=== PATIENT | male | born 1940 | race Caucasian/White ===

== ENCOUNTER → 2016-12-26 | Outpatient (CLI) | payer OTHER ==
[~2016-12-26] VITALS: Ht 167.6 cm; Wt 71.7 kg
[~2016-12-26] MED LIST: ACCUPRIL; ACCUPRIL PO; ACTOS15 MG PO; ADULT LOW DOSE81 MG PO; ASPIR 8181 MG PO; ASPIRIN PO; ASPIRIN325 PO; B-121000 MC2 PO; BAYER CHEWABLE81 MG PO; BISACODYL SUPP10 MG RECTAL; CHANTIX1 MG; COMBIVENT INH; COMBIVENT RESPIM4 GM INH; EFFIENT10 MG PO; FISH OIL 1,0001 EAC5 PO; FISHOIL OR; FISHOIL PO; GLUCOPHAGE1000 MG PO; HYDROCODONE-AP1 EAC6 PO; IBUPROFEN 200200 M1 PO; INDERAL40 MG PO; IRON325 PO; KLOR-CON M2020 MEQ PO; LEVAQUIN 250 M250 MG PO; MINIPRIN81 MG PO; NASAL & SINUS D30 MG PO; PIOGLITAZONE15 MG; PLAVIX 75 MG TA75 M1 PO; PRILOSEC 20 MG20 MG PO; PROPRANOLOL 4040 M1 PO; PROTONIX40 M1 PO; PROTONIX40 M2 PO; QUINU5 PD PO; SIMVASTATIN40 MG PO; SYMBICORT INH; SYMBICORT160 MCG/4. INH; TYLENOL325 MG PO; VITAMIN D1000 UNIT PO; VOLTAREN GEL 1100 G2 TOP; ZOCOR40 MG PO
--- NOTE | ~2016-12-26 | S ---
[facility] [place] [address] SURGICAL PATH RPT PROCEDURE Name: IMANI BENNETT Room #: REG PREMA Abreu.#: [id number] Admission: 12/26/16 Date of : 44 Discharge: Report #: [id number] Path Case #: [id number] PATHOLOGY REPORT COLLECTION DATE: 12/26/2016 RECEIVED DATE: 12/26/2016 SUBMITTING PHYS: Dr. Kailash Bolden OTHER PHYS: Dr. Barrington Lee SPECIMEN(S) RECEIVED: A.Small bowel B.Gastric C.Polyp at 30cm * * * * * * * * * * * * FINAL DIAGNOSIS: A. Small bowel mucosa, rule out celiac disease, endoscopic biopsy: - No diagnostic abnormalities present. B. Gastric mucosa, rule out gastritis, endoscopic biopsy: - Three fragments of antrum mucosa showing moderate reactive gastropathy; negative for intestinal metaplasia or atrophy. - Two fragments of small bowel-type villous mucosa compatible with pyloric outlet. - Negative for Helicobacter pylori. C. Polyp, 30 cm, endoscopic biopsy: - Hyperplastic polyp. - Negative for dysplasia. (IUV:harley; 12/29/2016) COMMENT: Helicobacter pylori immunohistochemical stain performed on block B1: Negative. PATHOLOGIST: Melani Britton M.D. REPORT ELECTRONICALLY SIGNED BY: Melani Britton M.D. DATE/TIME: 12/29/2016 16:22 * * * * * * * * * * * * GROSS PATHOLOGY: A. The specimen is received in formalin, labeled "Ney Bennett and biopsy small bowel rule out celiac disease", are multiple villalba soft tissue the aggregate measure 0.7 x 0.3 x 0.2 cm, entirely submitted in A1. B. The specimen is received in formalin, labeled "Ney Roselin and biopsy gastric rule out gastritis", are multiple villalba soft tissue the aggregate measure 0.5 x 0.3 x 0.2, entirely submitted in B1. [address] [address] SURGICAL PATH RPT PROCEDURE Name: IMANI BENNETT Room #: REG [facility].#: [id number] Admission: 12/26/16 Date of : 44 Discharge: Report #: [id number] Path Case #: [id number] C. The specimen is received in formalin, labeled "Ney Bennett and polyp at 30 cm", are two villalba soft tissue 0.3 and 0.5 cm in greatest dimension, entirely submitted in C1. (SWS; 12/26/2016) CLINICAL HISTORY: Anemia, gastritis, hiatal hernia, colon polyps, diverticulosis INITIAL CPT CODE(S): A; 60664 B; 16844, 92421 C; 21669 Professional services performed by [facility] at [address], [place] [address] Technical services performed by [facility] at [address] [place] [address], [address] [address]. [facility] [address] [place] [address] PHONE: [phone] DIRECTOR: Jefferson Pimentel M.D. * * * END OF REPORT * * *
--- NOTE | ~2016-12-26 | P ---
[facility] [place] [address] [place] [address] PROCEDURE REPORT Name: IMANI BENNETT Room #: REG Jodie Markell.#: [id number] Admission: 12/26/16 Attend Phys: Kailash Bolden MD Discharge: Date of : 42 Report #: [id number] THIS REPORT FOR: //name// CC: Kailash Lee MD BRIEF HISTORY: The patient is a 76-year-old male with history of anemia, which is recurrent. He also reports he has lost 60 pounds in the past year, described anorexia and early satiety. PREOPERATIVE DIAGNOSES: Anemia and weight loss. POSTOPERATIVE DIAGNOSES: 1. Moderate diffuse gastritis. 2. Moderate hiatus hernia. MEDICATIONS: Deep sedation with propofol per anesthesia. SPECIMEN: Small-bowel biopsies to rule out celiac disease. ESTIMATED BLOOD LOSS: 3 mL. PROCEDURE: EGD with biopsy. FINDINGS: Prior to propofol sedation, procedure of upper endoscopy was discussed with the patient as well as potential risks, benefits, and complications. He indicates he understands and desires to proceed. With the patient in left lateral decubitus position, the [employer] video endoscope was inserted in the cervical esophagus under direct vision without difficulty. Examination of this organ through its entire length revealed normal esophageal mucosa down the squamocolumnar junction. The squamocolumnar junction was inspected and noted to be unremarkable. No evidence of ulcers, erosions, or [place] mucosa. No strictures were seen. A moderate hiatus hernia was noted. Mucosa and hernia was normal. No ulcers or erosions were seen. The scope was advanced in the stomach, which was examined on end view as well as retroflexed views. There was a pattern of diffuse erythematous gastritis, primarily in the antrum and stomach, no ulcers were seen. No retained solids or liquids were seen with regards to gastroparesis. Upon retroflexion, the hiatus hernia was seen. No mass lesions were seen. The pylorus, duodenal bulb, and postbulbar sweep down to the third portion was inspected and noted to be unremarkable. Due to his anemia, multiple biopsies were obtained to evaluate for celiac disease. At that point, the scope was slowly withdrawn and careful circumferential views confirmed the above findings. The patient tolerated the procedure well. In addition, no bleeding lesions or lesions to be associated with blood loss were identified today. In addition, the patient had hyperplastic polyps in the past [address] [address] PROCEDURE REPORT Name: IMANI BENNETT Room #: REG CLI Anselmo#: [id number] Admission: 12/26/16 Attend Phys: Kailash Bolden MD Discharge: Date of : 42 Report #: [id number] that were removed, no polyps were seen on examination today. CONDITION OF THE PATIENT UPON DISCHARGE: Following procedure, the patient drowsy and prepared for colonoscopy. INSTRUCTIONS TO THE PATIENT AND FAMILY AT THE TIME OF DISCHARGE: We will follow up on biopsy and proceed with colonoscopy, if diagnosis of anemia remains in doubt, repeat an M2 capsule may be consideration in this patient. his weight loss and symptoms of early satiety, he may have gastroparesis and we will have him obtain a gastric emptying study for further evaluation. We will proceed with colonoscopy at this time. <ELECTRONICALLY SIGNED> By: Kailash Bolden MD 12/26/16 1108 [id number] 0854 Kailash Bolden MD /nt
--- NOTE | ~2016-12-26 | P ---
[facility] [place] [address] [place] [address] PROCEDURE REPORT Name: IMANI BENNETT Room #: REG [facility].#: [id number] Admission: 12/26/16 Attend Phys: Kailash Bolden MD Discharge: Date of : 42 Report #: [id number] THIS REPORT FOR: //name// CC: Kailash Lee MD BRIEF HISTORY: The patient is a 76-year-old male with a history of anemia which is recurrent. PREOPERATIVE DIAGNOSIS: Anemia. POSTOPERATIVE DIAGNOSES: 1. A flat 4-mm polyp, 30 cm. 2. Moderate diverticulosis coli, greater left colon than right colon. 3. Melanosis coli. MEDICATIONS: Deep sedation with propofol per anesthesia. SPECIMEN: Polyp from 30 cm. ESTIMATED BLOOD LOSS: 3 mL. PROCEDURE: Colonoscopy to cecum and ileum with biopsy. FINDINGS: Prior to sedation, the procedure of colonoscopy was discussed with the patient as well as potential risks and its complications. He indicates he understands and desires to proceed. DESCRIPTION OF PROCEDURE: With the patient in the left lateral decubitus position, digital examination was completed, which revealed no abnormalities. Subsequently, the [employer] video colonoscope was introduced in the rectum, advanced under direct vision to the cecum. Done with minimal difficulty. The cecum was identified by the ileocecal valve and the appendiceal orifice. I was also able to visualize the distal segment of the terminal ileum, which was inspected and noted to be unremarkable. At that point, the scope was slowly withdrawn and careful circumferential views obtained. Upon slow withdrawal of the scope, the prep was noted to be good. The mucosa was within normal limits. Normal vascular pattern. Normal light reflex. As we withdrew the scope, the mucosa was inspected. The mucosa was intact throughout the colon. No bleeding lesions or potential bleeding lesions were seen on this examination. He was noted to have a pattern of mild melanosis throughout the entire colon. There was no endoscopic evidence of diverticulitis. Again, as we withdrew the scope, the mucosa was intact. No mucosal abnormalities were seen until the scope was withdrawn in the sigmoid colon, and at 30 cm, a flat 4-mm polyp was seen and removed by biopsy. In addition, there was noted to be moderately severe diverticular disease of the left colon, without endoscopic evidence of [address] [address] PROCEDURE REPORT Name: IMANI BENNETT SHANNOCK Room #: REG [facility]#: [id number] Admission: 12/26/16 Attend Phys: Kailash Bolden MD Discharge: Date of : 44 Report #: [id number] diverticulitis. Scope was withdrawn in the rectum. Upon retroflexion, no abnormalities were seen. Scope was withdrawn. The patient tolerated the procedure well. CONDITION OF THE PATIENT UPON DISCHARGE: Following procedure, the patient drowsy and will be discharged home when fully ambulatory. INSTRUCTIONS TO THE PATIENT AND FAMILY AT THE TIME OF DISCHARGE: As per anemia, I do not find any bleeding lesions. Please see upper endoscopy report for additional details regarding evaluation for anemia. If the small bowel biopsies done at the EGD are negative, consider repeating his M2 Capsule study. He also has had a 60-pound weight loss. Please see upper endoscopy report for additional comments. I do not see any lesions that would explain weight loss. We will follow up on the path report. If the polyp is an adenoma, he should return in 5 years; if not, then would give consideration to 10 years, but based on his overall felt status at that point in time. He will otherwise return to the care of Dr. Barrington Lee. We will obtain labs for review with regards to his anemia. Last colonoscopy was more than 5 years ago. Withdrawal time from the cecum was 70 minutes 33 seconds. <ELECTRONICALLY SIGNED> By: Kailash Bolden MD 12/26/16 1108 0908 1003 Kailash Bolden MD /nt
== END | disposition home or self-care (01) ==
LOC: GI 07:01
DX: K63.5 Polyp of colon (principal); K57.30 Diverticulosis of large intestine without perforation or abscess without bleeding; K31.9 Disease of stomach and duodenum, unspecified; K63.89 Other specified diseases of intestine; K44.9 Diaphragmatic hernia without obstruction or gangrene; I10 Essential (primary) hypertension; E11.9 Type 2 diabetes mellitus without complications; J43.9 Emphysema, unspecified; E78.5 Hyperlipidemia, unspecified; K21.9 Gastro-esophageal reflux disease without esophagitis; F17.210 Nicotine dependence, cigarettes, uncomplicated; Z95.5 Presence of coronary angioplasty implant and graft; Z95.1 Presence of aortocoronary bypass graft; Z90.49 Acquired absence of other specified parts of digestive tract; Z98.41 Cataract extraction status, right eye; Z98.42 Cataract extraction status, left eye; Z98.890 Other specified postprocedural states; Z88.8 Allergy status to other drugs, medicaments and biological substances; Z79.82 Long term (current) use of aspirin; Z79.899 Other long term (current) drug therapy
CPT/HCPCS: 62110; 62900

== ENCOUNTER → 2017-01-08 | Outpatient (CLI) | payer OTHER | LOC: NUC 01-06 00:43 | DX: R14.0 Abdominal distension (gaseous) (principal); R68.81 Early satiety ==

== ENCOUNTER → 2017-02-16 | Outpatient (CLI) | payer OTHER | END | disposition home or self-care (01) | LOC: GI 02-02 14:42 | DX: K92.2 Gastrointestinal hemorrhage, unspecified (principal); Z98.890 Other specified postprocedural states; Z88.8 Allergy status to other drugs, medicaments and biological substances; Z79.82 Long term (current) use of aspirin; Z79.899 Other long term (current) drug therapy; Z86.73 Personal history of transient ischemic attack (TIA), and cerebral infarction without residual deficits ==

== ENCOUNTER → 2017-03-20 | Outpatient (CLI) | payer OTHER ==
[~2017-03-20] MED LIST changes: +COLACE100 MG PO; +FLOMAX0.4 MG PO; +HYDRALAZINE 10M10 MG PO; +LEVAQUIN 500 M500 M1 PO; +MIDODRINE HCL2.5 M1 PO; +MIRALAX17 GM PO; +MUCINEX600 MG PO
== END ==
LOC: RAD 12:43
DX: J44.9 Chronic obstructive pulmonary disease, unspecified (principal)

== ENCOUNTER 2017-05-31 17:21 | Inpatient (IN) | payer OTHER ==
[~2017-05-31] VITALS: Ht 180.3 cm; Wt 65.1 kg
[2017-05-31] VITALS (22 sets, daily range): BP systolic 126–211; BP diastolic 64–142
--- NOTE | ~2017-05-31 | EEG ---
[facility] [place] [address] ELECTROENCEPHALOGRAM Name: IMANI BENNETT Room #: 217-P [facility] IN M.R.#: [id number] Admission: 05/31/17 Attend Phys: Iggy Centeno DO Discharge: 06/04/17 Date of : 44 Report #: [id number] THIS REPORT FOR: //name// CC: Iggy Lee DATE OF SERVICE: 06/01/2017 This patient's EEG was done because this patient continued to deteriorate and we do not find any reason on the imaging study for his deterioration. His background activity is about 6 Hz and 30 microvolts. It is intermixed with theta range slowing on both sides. It is slow on both sides, but it may be even more slow on the left side as compared to the right side. Photic stimulation is unremarkable. The EEG does appear to be somewhat slower on some places as compared to others and the patient may be drowsy there. IMPRESSION: This is an abnormal EEG because it is very disorganized and poorly formed. That is a nonspecific finding, but can occur with any encephalopathy. EEG does appear to be a little bit more slow on the left side as compared to the right side. Clinical correlation is recommended. Thank you very much for this referral. <ELECTRONICALLY SIGNED> By: Pj Yadav MD 06/11/17 1906 1557 1601 Pj Yadav MD /zeke
--- NOTE | ~2017-05-31 | HC ---
[facility] [place] [place] [address] [place] [address] CONSULTATION Name: IMANI BENNETT RAY Room #: 238-P ADM IN M.R.#: [id number] Admission: 05/31/17 Attend Phys: Iggy Centeno DO Discharge: Date of : 42 Report #: [id number] THIS REPORT FOR: //name// CC: Iggy Shepherden Jesus DATE OF SERVICE: 05/31/2017 HISTORY OF PRESENT ILLNESS: This is a 76-year-old male patient who presented with pretty profound weakness on the left side. It was acute in onset and it started spontaneously. It was associated with hypertension. The patient usually does not have that much of hypertension and in fact his blood pressure usually runs about 120/80. He also had some left facial droop. Emergency Room physician evaluated the patient for TPA and I discussed with them and asked them to check for exclusion criteria and if there is no exclusion and the patient wanted to proceed with TPA, TPA can be given. That was done by Emergency Room and TPA was started. The patient is stable and has not had any side effect from TPA and I talked to him and the again and they very well understand the indication, potential complication, and alternatives of TPA. REVIEW OF SYSTEMS: Indicate that he did not have any stroke in the past. He does have a significant coronary artery disease. He had right hip problems in the past. He had bilateral cataract surgery. He has a history of diabetes and hyperlipidemia. He has a history of smoking. He does take Plavix. That was his relevant 14-point review of systems. PAST MEDICAL HISTORY: Negative for stroke. FAMILY HISTORY: Negative for early age stroke. SOCIAL HISTORY: He has a history of smoking, but not abusing alcohol. PHYSICAL EXAMINATION: Indicate he is alert. He is responsive. He can follow simple command. Initially, his speech was slightly slurred, but when I saw him, he had no speech difficulty, but his cranial nerve examinations appear to be showing left hemianopsia. I did that examination multiple times and he does have left hemianopsia. Similarly, he still has a slight left facial palsy. His motor examination in the left upper and left lower extremity has significantly improved. He is able to move both of them against gravity, now without any difficulty. He is still weak in the left upper and left lower extremity when compared to the right side, but it is about 4/5. His heart does not appear to be showing atrial fibrillation. He has no respiratory difficulty, is reasonably well-developed individual. When he came in, his blood pressure was 211/89, but it did come down by a single dose of labetalol. His imaging demonstrate that CT scan does not show any obvious abnormalities. [facility] [address] [place] [address] CONSULTATION Name: IAMNI BENNETT Room #: 238-P [facility] IN M.R.#: [id number] Admission: 05/31/17 Attend Phys: Iggy Centeno DO Discharge: Date of : 44 Report #: [id number] IMPRESSION: I had a long discussion with the patient and the . I discussed with them the TPA. I discussed with them that we cannot confirm the diagnosis of TPA before giving TPA because the time will run out. That was already explained by Emergency Room physicians before gave him the TPA and as I understand from him he went to the exclusion criteria. He is on Plavix and Plavix is not really a contraindication for TPA. He is hypertensive. I did talk to them that there is a real chance of having a symptomatic bleed and that can be catastrophic and fatal. I did discuss with them the TPA started without fully confirming the diagnosis at this stage and they understood it. His blood pressure is fluctuating with labetalol. It has come down to 160s, but then it goes back to 180s again. Therefore, I suggested the Cardene, which will be easy to titrate and it will be okay to get his blood pressure down to about 150 systolic and keep between 150 and 180 systolic because his vasculature is open. His hemianopsia is worrisome. If his hemianopsia continue, then I think he will need pretty extensive workup to look for any atrial fibrillation. Presently, there is nothing to do thrombectomy on because a CT angio was reported as normal. I will reevaluate this patient soon and I have talked to the nurses and then see him back again tomorrow. <ELECTRONICALLY SIGNED> By: Pj Yadav MD 05/31/172307 40 06 Pj Yadav MD /nt
--- NOTE | ~2017-05-31 | HC ---
[facility] [place] [address] [place] [address] CONSULTATION Name: IMANI BENNETT Room #: 217-P [facility] IN M.R.#: [id number] Admission: 05/31/17 Attend Phys: Iggy Centeno DO Discharge: 06/04/17 Date of : 44 Report #: [id number] THIS REPORT FOR: //name// CC: Iggy Lee DATE OF SERVICE: 06/01/2017 HISTORY OF PRESENT ILLNESS: The patient is a 76-year-old white male admitted with left-sided weakness, facial droop. He was diagnosed with a CVA with left-sided weakness and was given TPA. CT and MRI scan were noted to be negative. EEG was also negative. There is a question of possible hypertensive encephalopathy, but Neurology is closely involved. We are seeing him in rehabilitation medicine consultation. He is currently in the intensive care unit. PAST MEDICAL HISTORY: Includes hypertension, hyperlipidemia, diabetes mellitus, GERD, COPD, coronary artery disease, and status post coronary artery bypass graft. MEDICATIONS: Please see the full medication listing. ALLERGIES: INTEGRILIN. HABITS: History of tobacco abuse, noted to be current every day smoker. SOCIAL HISTORY: Lives in a house with his . Premorbid walker ambulator in the community. Otherwise, did not use a gait aid in the house and just walks slowly. They have one step to go in. REVIEW OF SYSTEMS: Unobtainable as he is quite somnolent. PHYSICAL EXAMINATION: GENERAL: A 76-year-old white male, quite sleepy seen in the intensive care unit. No obvious distress. He has nasal prong O2 in place. VITAL SIGNS: Last recorded temperature 97.7, pulse 74, respirations 20, blood pressure 151/72. NEUROLOGIC: Facies appeared symmetric. He was only arouse for me for a few seconds and then drift back off to sleep. He was able to say a couple of simple statements. Appeared to have weakness of that left upper and left lower extremity, probably a grade 4/5. DTRs were trace to 1. I was unable to assess sensation. ASSESSMENT: A 76-year-old white male with the following problem list: 1. Cerebrovascular accident with left-sided hemiparesis, status post TPA. [address] [address] CONSULTATION Name: IMANI BENNETT RAY Room #: 217- DIS IN M.R.#: [id number] Admission: 05/31/17 Attend Phys: Iggy Centeno DO Discharge: 06/04/17 Date of : 44 Report #: [id number] and MRI without an obvious cerebrovascular accident. EEG was negative. Neurology is involved. 3. Question of hypertensive encephalopathy. 4. Permissive hypertension. 5. Coronary artery disease status post stent with. 6. Diabetes mellitus type 2. 7. Hyperlipidemia. 8. Gastroesophageal reflux disease. 9. Chronic obstructive pulmonary disease. PLAN: The patient is continuing care is in the intensive care unit at this point. Therapy evaluations are underway. He certainly may warrant an acute in-hospital inpatient rehabilitation stay depending upon how he does as he further stabilizes. He is still quite sleepy right now and will need to see how he does in his therapy evaluations. We will be glad to follow along with you regarding his rehab therapy needs. <ELECTRONICALLY SIGNED> By: Andrew Sue MD 06/09/17 1030 1015 1200 Andrew Sue MD /[facility]
--- NOTE | ~2017-05-31 | EKG ---
[address] [address] ELECTROCARDIOGRAM REPORT Name: DONALDIMANI Room #: 238-P ADM IN M.R.#: [id number] Admission: 05/31/17 Attend Phys: Iggy Centeno DO Discharge: Date of : 44 Report #: [id number] THIS REPORT FOR: //name// [facility] ED Test Date: 2017-05-31 Test Time: 18:30:11 Pat Name: IMANI BENNETT Department: Room: 238 Gender: M Sdc Teacher: : 1940 Requested By: Julien James Order Number: [id number] MD: Young Delgado Measurements Intervals [place] Rate: 74 P: 50 VT: 191 QRS: -56 QRSD: 129 T: -3 QT: 440 QTc: 489 Interpretive Statements Sinus rhythm Left bundle branch block Compared to ECG 08/26/2015 01:16:58 No significant changes Electronically Signed On 05-31-2017 21:51:57 CDT by Young Delgado [email or web address] <ELECTRONICALLY SIGNED> By: Young Delgado MD 05/31/17 215 29 29 Young Delgado MD /BRIAN
--- NOTE | ~2017-05-31 | HC ---
[facility] [place] [address] CONSULTATION Name: IMANI BENNETT RAY Room #: 238-P ADM IN M.R.#: [id number] Admission: 05/31/17 Attend Phys: Iggy Centeno DO Discharge: Date of : 44 Report #: [id number] THIS REPORT FOR: //name// CC: Iggy Lee REFERRAL PHYSICIAN: Dr. Centeno. REASON FOR REFERRAL: Hypoxia. HISTORY OF PRESENT ILLNESS: The patient is a 76-year-old white male, was admitted yesterday with left-sided weakness and facial droop, with hypoxia. A pulmonary consultation was requested. The patient was in his usual state of health until yesterday evening when he complained of weakness in the left upper and lower extremity along with facial droop. Initial CT head and MRI were unremarkable. The patient was felt with evolving CVA, and TPA was given. He was also found to be hypertensive, being given antihypertensive medications. He currently appears weak, what appears to have apneic spells. He is developing periodic hypoxia with apneas. According to the , the patient has had progressive deterioration of health about 2 years ago. He started to have poor appetite 2 years ago and has been gradually gaining weight. I am not certain if he had a workup during this time. Over the past 6 months, he has also been getting weaker. He has attributed this to severe sciatica pain. He has had cortisone shots in the past. It was recommended that he receive a permanent pain pump placement for his back pain. PAST MEDICAL HISTORY: Notable for COPD with passive tobacco use after having smoked about 40 years. Coronary artery disease, undergoing coronary artery bypass surgery, hypertension, diabetes mellitus type 2, anemia, hyperlipidemia, gastroesophageal reflux disease. PAST SURGICAL HISTORY: Notable for cholecystectomy, right hip replacement, cardiac stenting, bilateral cataract surgery, oral surgery with maxillary extraction. ALLERGIES: INTEGRILIN, WHICH CAUSES SEVERE LEUKOPENIA. HOME MEDICATIONS: Symbicort, Glucophage, Zocor, fish oil supplements, Combivent, Protonix, Plavix, aspirin, iron supplements, vitamin B12 supplements. FAMILY HISTORY: Noncontributory. [facility] [address] [place] [address] CONSULTATION Name: IMANI BENNETT RAY Room #: 238-P [facility] IN M.R.#: [id number] Admission: 05/31/17 Attend Phys: Iggy Centeno DO Discharge: Date of : 44 Report #: [id number] SOCIAL HISTORY: . had a heart surgery 2 years ago. He quit smoking several years ago. Denies any alcohol use. REVIEW OF SYSTEMS: As mentioned above is notable for progressive weight loss over the past 2 years along with weakness over the past 6 months requiring a walker to ambulate. Chronic sciatica pain. Otherwise, unremarkable. PHYSICAL EXAMINATION: GENERAL: He is arousable, appears quite weak and somnolent. Appears to have apneic spells during my interview. VITAL SIGNS: Temperature is 97.4 degrees Fahrenheit, pulse is 65, respiratory rate is 18, blood pressure 150/67 mmHg, saturation is 95% on supplemental O2. HEENT: Normocephalic, atraumatic. NECK: Supple, without lymphadenopathy or thyromegaly. CHEST: Breath sounds are very decreased due to poor effort. Few scattered crackles in the bases. Air movements are decreased bilaterally. CARDIOVASCULAR: Normal S1, S2. There are no obvious murmurs or gallop. Pulses are 2+/4+ bilaterally. ABDOMEN: Soft, nontender, no organomegaly or masses felt. GENITOURINARY: Deferred. RECTAL: Deferred. EXTREMITIES: There is no edema, cyanosis or clubbing. LABORATORY DATA: CT head x 3 was noted. No obvious acute changes. MRI shows moderate atrophy, microvascular changes, otherwise no acute infarction. No bleeding noted. Carotid ultrasound shows no hemodynamically significant stenosis. Echocardiogram shows a normal ejection fraction, EF around 55-60%, positive bubble study from right to left shunt. Aortic valve is calcified without significant stenosis or insufficiency. The mitral valve is normal. Pulmonary artery pressure was not measured. Electrolytes are normal, creatinine is normal. WBC 10,500, hemoglobin is 10.4, platelets are normal. INR is 1.0. Arterial blood gas revealed pH 7.42, pCO2 of 34, pO2 of 62 on 3 liters of O2. IMPRESSION: 1. Acute hypoxic respiratory failure in this 76-year-old white male. Etiology is probably related to profound weakness, inability to take deep breaths resulting in microatelectasis, retained secretions. He also has a history of chronic obstructive pulmonary disease. His initial chest x-ray shows small lung volumes, without obvious consolidation or infiltrates. 2. Chronic obstructive pulmonary disease, severity unknown. We will stop bronchodilators. 3. Left-sided weakness with facial droop, presumed cerebrovascular accident, status post TPA. He is now developing apneic spells. We may need to follow neurologic status closely. 4. Hypertension, permissive given probable cerebrovascular accident. 5. Coronary artery disease with status post coronary bypass surgery. [facility] [address] [place] [address] CONSULTATION Name: IMANI BENNETT Room #: 238-P ADM IN M.R.#: [id number] Admission: 05/31/17 Attend Phys: Iggy Centeno DO Discharge: Date of : 44 Report #: [id number] 6. Right to left shunt by echocardiogram. This would explain his cerebrovascular accident. 7. Gastroesophageal reflux disease. 8. Progressive weight loss for about 2 years, etiology unknown. 9. Chronic back pain with immobility over the last 6 months. The patient gets around with a walker. RECOMMENDATION: We will keep saturation 90%, try noninvasive positive pressure ventilation. NT suction p.r.n. 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 Discussed with nursing, family. We also discussed my concerns with his progressive weight loss along with weakness over the past 6 months. They voiced understanding. Thank you for this consultation. <ELECTRONICALLY SIGNED> By: Mitchell Cool MD 06/03/17 1617 1317 [id number] Mitchell Cool MD /zeke
--- NOTE | ~2017-05-31 | 2DMMODE ---
[facility] [address] [place] [address] 2 D/M-MODE ECHOCARDIOGRAM Name: IMANI BENNETT WELCH Room #: 238-P ADM IN M.R.#: [id number] Admission: 05/31/17 Attend Phys: Iggy Centeno, Discharge: Date of : 44 Date of Service: 06/01/17 1055 Report #: [id number] THIS REPORT FOR: //name// APPROVED REPORT Study performed: 06/01/2017 09:29:50 EXAM: Comprehensive 2D, Doppler, and color-flow Echocardiogram Patient Location: ICU Room #: 238 Status: routine BSA: 1.89 HR: 69 bpm BP: 151/72 mmHg Other Information Study Quality: Adequate Technically limited study due to uncooperative patient, lung disease. Indications COPD CVA/TIA CAD Hypertension/HDD Echo Enhancing Agent Indication: Rule out Shunt Agent(s) / Amount(s) Used: Agitated Saline 6 cc 2D Dimensions RVDd: 33.27 mm LVEF(%): 65.14 (>50%) IVSd: 15.06 (7-11mm) LVOT Diam: 21.62 (18-24mm) LVDd: 44.82 mm PWd: 14.49 (7-11mm) Ascending Ao: 33.91 (22-36mm) LVDs: 28.89 (25-40mm) Aortic Root: 34.50 mm IVC: 16.00 mm Mora's LVEF: 65.14 % Volumes Left Atrial Volume (Systole) Single Plane 4CH: 47.76 mL Single Plane 2CH: 44.17 mL LA ESV Index: 27.00 mL/m2 Aortic Valve [facility] [address] [address] 2 D/M-MODE ECHOCARDIOGRAM Name: IMANI BENNETT Room #: 238-P [facility] IN [facility].#: [id number] Admission: 05/31/17 Attend Phys: Iggy Centeno, Discharge: Date of : 44 Date of Service: 06/01/17 1055 Report #: [id number] AoV Peak Panfilo.: 1.35 m/s AO Peak Gr.: 7.28 mmHg LVOT Max P.76 mmHg LVOT Max V: 1.09 m/s KAILEY Vmax: 2.97 cm2 Mitral Valve E/A Ratio: 0.6 MV Decel. Time: 390.78 ms MV E Max Panfilo.: 0.64 m/s MV A Panfilo.: 1.03 m/s MV PHT: 113.33 ms IVRT: 155.71 ms Pulmonary Valve PV Peak Panfilo.: 1.03 m/s PV Peak Gr.: 4.22 mmHg Pulmonary Vein P Vein S: 0.95 m/s P Vein A: 0.20 m/s P Vein D: 0.42 m/s P Vein A Dur.: 131.5 msec P Vein S/D Ratio: 2.26 Tricuspid Valve RAP Estimate: 5.00 mmHg Left Ventricle The left ventricle is normal size. Mild to moderate concentric left ventricular hypertrophy. The left ventricular systolic function is normal. The left ventricular ejection fraction is within the normal range. LVEF is 55-60%. Mild diastolic dysfunction is present (impaired relaxation pattern). Right Ventricle The right ventricle is normal size. The right ventricular systolic function is normal. Atria The left atrium size is normal. Positive bubble study for right to left shunting. The right atrium size is normal. Aortic Valve Aortic valve is calcified, trileaflet. No aortic regurgitation is present. There is no aortic valvular stenosis. Mitral Valve The mitral valve is normal in structure. There is no mitral valve regurgitation noted. No evidence of mitral valve stenosis. [facility] [address] [place] [address] 2 D/M-MODE ECHOCARDIOGRAM Name: IMANI BENNETT Room #: 238-P ADM IN .R.#: [id number] Admission: 05/31/17 Attend Phys: Iggy Centeno, Discharge: Date of : 44 Date of Service: 06/01/17 1055 Report #: [id number] Tricuspid Valve The tricuspid valve is normal in structure. There is no tricuspid valve regurgitation noted. Unable to assess PA pressure. Pulmonic Valve The pulmonary valve is normal in structure. Trace pulmonic regurgitation. Great Vessels The aortic root is normal in size. IVC is normal in size and collapses >50% with inspiration. Pericardium There is no pericardial effusion. <Conclusion> The left ventricular systolic function is normal. LVEF is 55-60%. Mild diastolic dysfunction Positive bubble study for right to left shunting. Aortic valve is calcified, trileaflet. No aortic valvular stenosis or insufficiency. The mitral valve is normal in structure. No mitral valve regurgitation noted. Pulmonary artery pressure could not be reliably ascertained There is no pericardial effusion. <ELECTRONICALLY SIGNED> By: Ervin Gale MD, FACC 06/01/17 1055 1055 1055 Ervin Gale MD, FACC /INF
[~2017-05-31 17:21] MED LIST changes: -COLACE100 MG PO; -FLOMAX0.4 MG PO; -HYDRALAZINE 10M10 MG PO; -LEVAQUIN 500 M500 M1 PO; -MIDODRINE HCL2.5 M1 PO; -MIRALAX17 GM PO; -MUCINEX600 MG PO
[2017-05-31 17:51] LABS: HEMATOCRIT 35.4 % (42.0-52.0); HEMOGLOBIN 11.6 gm/dL (14.0-18.0); MCH 25.2 pg (26.0-34.0); MCHC 32.8 g/dL (28.0-37.0); MCV 76.9 fL (80.0-100.0); RBC 4.6 mil/uL (4.50-6.00); RDW 20.5 % (10.5-14.5); WBC 10.1 thou/uL (4.0-11.0)
[2017-05-31 18:03] LABS: APTT 19.2 Seconds (24.5-32.8); PROTIME 10.3 Seconds (9.3-11.4)
[2017-05-31 18:05] LABS: ANION GAP 7 mmol/L (7-16); BUN 18 mg/dL (7-18); CHLORIDE 103 mmol/L (98-107); CO2 31 mmol/L (21-32); GLUCOSE 92 mg/dL (74-106); POTASSIUM 4.4 mmol/L (3.5-5.1); SODIUM 141 mmol/L (136-145)
[2017-05-31 18:09] LABS: TROPONIN-I < 0.04 ng/mL (<0.06)
[2017-06-01] VITALS (38 sets, daily range): BP systolic 121–190; BP diastolic 65–101
[2017-06-01 06:15] LABS: HEMATOCRIT 31.7 % (42.0-52.0); HEMOGLOBIN 10.4 gm/dL (14.0-18.0); MCH 25.1 pg (26.0-34.0); MCHC 32.8 g/dL (28.0-37.0); MCV 76.7 fL (80.0-100.0); RBC 4.14 mil/uL (4.50-6.00); RDW 19.7 % (10.5-14.5); WBC 10.5 thou/uL (4.0-11.0)
[2017-06-01 06:30] LABS: ANION GAP 10 mmol/L (7-16); BUN 15 mg/dL (7-18); CALCIUM 9.1 mg/dL (8.5-10.1); CHLORIDE 104 mmol/L (98-107); CHOLESTEROL 137 mg/dL (<200); CO2 28 mmol/L (21-32); CREATININE 0.9 mg/dL (0.7-1.3); GLUCOSE 83 mg/dL (74-106); HDL CHOLESTEROL 48 mg/dL (>40); LDL CHOLESTEROL 71 mg/dL (<100); POTASSIUM 3.6 mmol/L (3.5-5.1); SODIUM 142 mmol/L (136-145); TC:HDL 2.9 Ratio (Not establshd); TRIGLYCERIDE 92 mg/dL (<150); VLDL 18 mg/dL (<40)
[2017-06-01 10:11] LABS: GLYCOHEMOGLOBIN (HGB A1C) 4.9 % (4.8-5.6)
[2017-06-01 11:45] LABS: HCO3 21.9 mmol/L (22.0-26.0); PCO2 34.2 mmHg (35.0-45.0); PO2 62.2 mmHg (80.0-100.0); pH 7.425 (7.360-7.450); sO2 92.6 % (92.0-98.0)
[2017-06-02] VITALS (74 sets, daily range): BP systolic 92–164; BP diastolic 48–147
[2017-06-02] MEDS ORDERED: INDERAL40 MG PO (20:45)
[2017-06-03] VITALS (39 sets, daily range): BP systolic 90–163; BP diastolic 48–98
[2017-06-03 05:08] LABS: CALCIUM 8.9 mg/dL (8.5-10.1); CREATININE 0.8 mg/dL (0.7-1.3); POTASSIUM 3.2 mmol/L (3.5-5.1)
[2017-06-03 05:10] LABS: BASOPHILS 0.2 % (0.0-2.0); EOSINOPHILS 0.7 % (0.0-3.0); HEMATOCRIT 30.4 % (42.0-52.0); HEMOGLOBIN 9.9 gm/dL (14.0-18.0); LYMPHOCYTES 7.1 % (24.0-44.0); MCH 24.9 pg (26.0-34.0); MCHC 32.6 g/dL (28.0-37.0); MCV 76.4 fL (80.0-100.0); MONOCYTES 8.4 % (1.0-8.0); PLATELET COUNT 200 thou/uL (150-400); POLYS 83.6 % (36.0-66.0); RBC 3.98 mil/uL (4.50-6.00); RDW 20.1 % (10.5-14.5)
[2017-06-03 13:52] LABS: MAGNESIUM 1.9 mg/dL (1.8-2.4); POTASSIUM 3.8 mmol/L (3.5-5.1)
[2017-06-04 04:11] VITALS: BP 162/78
[2017-06-04 04:12] LABS: CALCIUM 8.6 mg/dL (8.5-10.1); CREATININE 0.8 mg/dL (0.7-1.3); POTASSIUM 3.4 mmol/L (3.5-5.1)
[2017-06-04 04:48] LABS: ABSOLUTE NEUTROPHILS 9.2 thou/uL (1.4-8.2); BASOPHILS 0.4 % (0.0-2.0); EOSINOPHILS 2.9 % (0.0-3.0); HEMATOCRIT 29.1 % (42.0-52.0); HEMOGLOBIN 9.5 gm/dL (14.0-18.0); LYMPHOCYTES 9.9 % (24.0-44.0); MCH 25.2 pg (26.0-34.0); MCHC 32.7 g/dL (28.0-37.0); MCV 77.2 fL (80.0-100.0); MONOCYTES 8.9 % (1.0-8.0); PLATELET COUNT 211 thou/uL (150-400); POLYS 77.9 % (36.0-66.0); RBC 3.77 mil/uL (4.50-6.00); WBC 11.9 thou/uL (4.0-11.0)
[2017-06-04 07:42] VITALS: BP 137/64
[2017-06-04 09:30] LABS: CREATININE 0.9 mg/dL (0.7-1.3); POTASSIUM 3.4 mmol/L (3.5-5.1)
[2017-06-04] MEDS ORDERED: LEVAQUIN 500 M500 M1 PO (09:52)
[2017-06-04 11:27] VITALS: BP 154/85
[2017-06-04 15:38] VITALS: BP 135/74
[2017-06-18] MEDS ORDERED: MUCINEX600 MG PO (08:54)
[2017-06-18] MEDS ORDERED: MIRALAX17 GM PO (08:54)
[2017-06-18] MEDS ORDERED: QUINU5 PD PO (08:54)
[2017-06-18] MEDS ORDERED: TYLENOL325 MG PO (08:54)
[2017-06-18] MEDS ORDERED: COLACE100 MG PO (08:54)
[2017-06-18] MEDS ORDERED: B-121000 MC2 PO (08:54)
[2017-06-18] MEDS ORDERED: FLOMAX0.4 MG PO (08:54)
[2017-06-21] MEDS ORDERED: HYDRALAZINE 10M10 MG PO (07:02)
[2017-06-23] MEDS ORDERED: MIDODRINE HCL2.5 M1 PO (09:55)
== END 2017-06-04 16:56 | DRG 61 ==
LOC: ER 17:21 → ICU 18:55 → EROBS 18:55 → ICU 19:40 → 2N 06-03 17:28
PROVIDERS: Emergency Medicine; Family Medicine; Nurse Practitioner Family
PROC: 4A00X4Z Measurement of Central Nervous Electrical Activity, External Approach (ICD-10-PCS; principal; 2017-06-01)
PROC: B24BZZ4 Ultrasonography of Heart with Aorta, Transesophageal (ICD-10-PCS; principal; 2017-06-01)
PROC: 3E06317 Introduction of Other Thrombolytic into Central Artery, Percutaneous Approach (ICD-10-PCS; principal; 2017-06-01)
PROC: 5A09457 Assistance with Respiratory Ventilation, 24-96 Consecutive Hours, Continuous Positive Airway Pressure (ICD-10-PCS; principal; 2017-06-01)
DX: I63.9 Cerebral infarction, unspecified (principal); J96.01 Acute respiratory failure with hypoxia; I67.4 Hypertensive encephalopathy; G81.94 Hemiplegia, unspecified affecting left nondominant side; G72.81 Critical illness myopathy; E46 Unspecified protein-calorie malnutrition; I10 Essential (primary) hypertension; E11.9 Type 2 diabetes mellitus without complications; J44.9 Chronic obstructive pulmonary disease, unspecified; K21.9 Gastro-esophageal reflux disease without esophagitis; R29.810 Facial weakness; G89.29 Other chronic pain; M54.9 Dorsalgia, unspecified; E78.00 Pure hypercholesterolemia, unspecified; E83.42 Hypomagnesemia; J32.9 Chronic sinusitis, unspecified; E87.6 Hypokalemia; D64.9 Anemia, unspecified; I25.5 Ischemic cardiomyopathy; I25.10 Atherosclerotic heart disease of native coronary artery without angina pectoris; F17.210 Nicotine dependence, cigarettes, uncomplicated; Z96.641 Presence of right artificial hip joint; Z90.49 Acquired absence of other specified parts of digestive tract; Z95.1 Presence of aortocoronary bypass graft; Z95.5 Presence of coronary angioplasty implant and graft; Z98.42 Cataract extraction status, left eye; Z98.41 Cataract extraction status, right eye; Z87.81 Personal history of (healed) traumatic fracture; Z68.20 Body mass index [BMI] 20.0-20.9, adult; Z79.02 Long term (current) use of antithrombotics/antiplatelets; Z79.82 Long term (current) use of aspirin; Z79.84 Long term (current) use of oral hypoglycemic drugs; Z79.899 Other long term (current) drug therapy; Z88.8 Allergy status to other drugs, medicaments and biological substances; Z82.49 Family history of ischemic heart disease and other diseases of the circulatory system
CPT/HCPCS: 10078; 10081